=== PATIENT | male | born 1985 | race Two or more races ===

== ENCOUNTER → 2025-05-12 | Outpatient (CLI) | payer MEDICAID, SELFPAY ==
--- NOTE | 2025-05-12 16:15 | XR_ITS ---
EXAMINATION: Testicular sonography complete TECHNIQUE: Grayscale sonographic images testes Date and time: May 12, 2025: 1538 hours INDICATIONS: Prior ultrasound 2 months ago demonstrated left varicocele, frequent urination years. FINDINGS: Right testis 4.8 cm epididymis 14 mm 6 mm right epididymal cyst Arterial flow testicle. No testicular mass Mild hydrocele Left testis 4.0 cm epididymis 10 mm Arterial flow testicle. No testicular mass Significant left varicocele Mild left hydrocele IMPRESSION: No testicular torsion or testicular mass Significant left varicocele
== END | disposition home or self-care (01) ==
LOC: CDIM 15:24
PROVIDERS: PCP Obstetrics & Gynecology; Referring Provider Nurse Practitioner Family; Visit Provider Nurse Practitioner Family
DX: I86.1 Scrotal varices (principal)
CPT/HCPCS: 76870